=== PATIENT | male | born 1970 | race Caucasian/White ===

== ENCOUNTER 2019-11-28 20:32 | Emergency (ER) | payer OTHER, SELFPAY ==
[2019-11-28 20:33] VITALS: BP 143/90; PULSE 81; RESP 15; TEMP 36.7; O2SAT 96; BMI 30.1
[2019-11-28] MEDS: Tetracaine 0.5% Ophthalmic Bottle 1 DRP LEFT EYE (21:50)
--- NOTE | 2019-11-28 22:11 | ED.DCSUM_ITS ---
History of Present Illness Chief Complaint: Eye Problem Informant: Patient Location: Left Eye Onset: Today Associated Symptoms - Eyes: Foreign body sensation History of injury: Foreign body Visual correction: Corrective contact lenses Narrative: Patient is a 49-year-old male with no significant past medical history present with foreign body sensation in his left eye. Patient was put his contacts and and felt like his left contact was stuck in his eye. Son tried to get it out but was unsuccessful. Patient denies any vision changes. 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 He denies any other trauma or any other complaints at this time. Past Medical History - Allergies and Home Meds Allergies/Adverse Reactions: Allergies No Known Allergies Allergy (Verified 11/28/19 20:33) Primary Care Physician: Ron Isidro MD [Primary Care Provider] - De Talavera MD [STAFF PHYSICIAN] - Past Medical History: None Surgical History: noncontributory Lives: With Family Smoking Status: Current every day smoker - Family History Maternal Family History: Reports: No pertinent history Review of Systems General: Denies: Chills, Fever, Sweats Eyes: Reports: - - Foreign body sensation in left eye. Denies: Visual changes - bilaterally, Diplopia ENT: Denies: Rhinorrhea, Sore throat Cardiovascular: Denies: Chest pain, Palpitations Respiratory: Denies: Dyspnea, Cough, Dyspnea on exertion Gastrointestinal: Denies: Abdominal pain, Nausea, Vomiting, Diarrhea Skin: Denies: Rash, Wounds Neurological: Denies: Headache, Weakness, Numbness Physical Exam Visual Acuity: bilateral: 20/20 - 20/25 b/l Visual Acuity: Uncorrected Eyelid: Left eyelid everted, No foreign body Right Conjunctiva/Sclera: Normal inspection Left Conjunctiva/Sclera: No foreign body, Diffuse focal injection Left Cornea: Normal inspection Extraocular Motion: Normal exam, No pain, No palsy, No nystagmus Pupils: PERRL Vital Signs/Narrative: Vital Signs Temp Pulse Resp BP Pulse Ox 11/28/19 20:33 98.1 F 81 15 143/90 H 96 Inital Vital Signs reviewed: Yes General: Well nourished, Well developed Head: Normocephalic, Atraumatic ENT: Moist mucous membranes, No rhinorrhea Neck: Supple, Nontender Back: Nontender, Normal Inspection Extremities: Nontender, No edema Skin: Normal color, No rash Neurological: Alert, Oriented x3, Cranial nerves II-XII grossly intact, Normal Strength, Normal Sensation Psychological: Normal affect Diagnostic/Tx/Re-eval - Medical Decision Making Evaluated for concern of contact stuck in his left eye. We are unable to visua lize the contact in his eye. Eyelids are a everted. He is not have any obvious signs of trauma however he will be empirically placed on Cipro drops. His vision is normal. He is instructed to follow-up with his eye doctor tomorrow for repeat exam. Patient is counseled on signs and symptoms requiring return to the emergency room. Patient verbalizes agreement and understand this plan. Patient discharged home in stable and improved condition. ED Disposition - Plan for ED Patient: Disposition: Home or Assisted Living Diagnosis: Contact lens stuck Instructions: ED EYE FOREIGN BODY Corneal Referrals: Ron Isidro MD [Primary Care Provider] - De Talavera MD [STAFF PHYSICIAN] - Additional Instructions: We cannot find the contact lens in your eye tonight. You might of scratched her eyes he had been placed on antibiotic eyedrops just in case. Please follow-up with your eye doctor tomorrow for repeat eye exam. If you cannot get in with your eye doctor, call Dr. Talavera, who you have been referred to. Please let them know that you were seen in the ER today and told that you need 24-hour follow-up.
[2019-11-28] MEDS: Ciprofloxacin 0.3% 2.5ml Bottle LEFT EYE (22:47)
== END 2019-11-28 22:48 | disposition home or self-care (01) ==
PROVIDERS: Emergency Provider Emergency Medicine; PCP Family Medicine
DX: T15.02XA Foreign body in cornea, left eye, initial encounter (principal); X58.XXXA Exposure to other specified factors, initial encounter; Y93.89 Activity, other specified; Y92.9 Unspecified place or not applicable; F17.200 Nicotine dependence, unspecified, uncomplicated
CPT/HCPCS: 99283

== ENCOUNTER 2023-01-11 16:33 | Emergency (ER) | payer BC, SELFPAY ==
[2023-01-11 16:34] VITALS: BP 145/78; PULSE 66; RESP 18; TEMP 35.7; O2SAT 88; BMI 31.9
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
[2023-01-11] MEDS: Ondansetron 4 MG/2 ML Vial IV (16:56)
[2023-01-11 17:05] VITALS: O2SAT 98
[2023-01-11 17:11] LABS: Absolute Lymphocyte Count 2.11 X10^3/uL (0.83-4.51); Absolute Neutrophil Count 7.6 X10^3/uL (2.0-7.7); Basophil# 0.07 X10^3/uL; Basophil% 0.7 % (0-1); Eosinophil# 0.15 X10^3/uL; Eosinophils% 1.4 % (0-5); Hematocrit 45.1 % (40-54); Lymphocyte # 2.11 X10^3/ul (0.83-4.51); Lymphocyte % 19.6 % (19-41); Mean Corp Hgb Conc 33.3 g/dL (32-36); Mean Corpuscular Hgb 29.9 pg (27.0-32.0); Mean Corpuscular Volume 89.8 fL (80-94); Mean Platelet Vol. 9.6 fl (6.2-12.0); Monocyte# 0.72 X10^3/uL; Monocyte% 6.7 % (0-10); NRBC Flagged by Analyzer 0 % (0-5); Neutrophil # 7.56 X10^3/uL (2.7-7.7); Neutrophil % 70.4 % (47-70); Platelet Count 190 K/mm3 (150-450); RBC Distribution Width CV 12.2 % (11.6-14.6); RBC Distribution Width SD 39.9 fl (35.1-43.9); Red Blood Count 5.02 M/mm3 (4.6-6.2); White Blood Count 10.7 K/mm3 (4.4-11.0)
[2023-01-11 17:34] LABS: ALB/GLOB Ratio 0.9 RATIO (0.9-2.4); AST(SGOT) 28 U/L (15-37); Alanine Aminotransfer ALT/SGPT 36 U/L (16-61); Albumin, Serum 3.4 g/dL (3.2-5.0); Alkaline Phosphatase 102 U/L (45-117); Anion Gap 4 (5-15); BUN 14 mg/dL (7-18); BUN/Creat Ratio 10.5 RATIO (10-20); Calcium,Total 8.4 mg/dL (8.5-10.1); Chloride 107 mmol/L (98-107); Creatinine, Serum 1.33 mg/dL (0.70-1.30); EST Glomerular Filtration Rate 60 mL/min (>60); Est Glom Filt Rate - Afr Amer 72 mL/min (>60); Estimated Creatinine Clearance 65.56 ml/min; Globulin 3.8 g/dL (2.2-4.2); Glucose 101 mg/dL (74-106); Lipase 49 U/L (13-75); Protein, Total 7.2 g/dL (6.4-8.2); Sodium Level 139 mmol/L (136-145); Troponin-I HS 10 pg/mL (3.0-78.0)
[2023-01-11 17:41] LABS: Lactic Acid 1.4 mmol/L (0.4-1.9)
--- NOTE | 2023-01-11 17:45 | CT_ITS ---
EXAM: CT MAXILLOFACIAL WITHOUT INTRAVENOUS CONTRAST CLINICAL INDICATION: Trauma TECHNIQUE: Helically acquired images were obtained of the face without intravenous contrast. This CT exam was performed using one or more of the following dose reduction techniques: automated exposure control, adjustment of the mA and/or kV according to patient size, and/or use of iterative reconstruction technique. COMPARISON: No relevant prior studies available. FINDINGS: BONES/JOINTS: There are bilateral nasal bone fractures. No discrete lytic or blastic abnormalities. SOFT TISSUES: Unremarkable. No focal subcutaneous swelling. No discrete fluid collections. ORBITS: Unremarkable. Both globes are unremarkable. Extraocular muscles are normal. Retrobulbar fat appears unremarkable. SINUSES: See below. MASTOID AIR CELLS: Unremarkable as visualized. Clear. DENTAL: No acute findings. No periodontal osseous erosion. BRAIN AND EXTRA-AXIAL SPACES: There is callosal thickening in multiple ethmoid air cells. CT/Sinus/Facial Bone IMPRESSION: Bilateral nasal bone fractures. No other facial bone fractures are identified. Electronically Signed: Elijah Tee MD at 18:32 EDT ,
--- NOTE | 2023-01-11 17:45 | CT_ITS ---
EXAM: CT CERVICAL SPINE WITHOUT INTRAVENOUS CONTRAST CLINICAL INDICATION: Trauma TECHNIQUE: Helically acquired images were obtained of the cervical spine without intravenous contrast. 2D reformatted images were reviewed. This CT exam was performed using one or more of the following dose reduction techniques: automated exposure control, adjustment of the mA and/or kV according to patient size, and/or use of iterative reconstruction technique. COMPARISON: No relevant prior studies available. FINDINGS: VERTEBRAE: There is a well-corticated curvilinear lucency seen within the right superior articulating facet of C4 seen on series 5 image 67 likely representing a nutrient canal. In the setting of trauma a fracture is a possibility but less likely. No traumatic subluxation. Normal craniocervical junction and cervicothoracic junction. DISCS/SPINAL CANAL/NEURAL FORAMINA: There is disc space narrowing at C6-7. SOFT TISSUES: Unremarkable. No prevertebral soft tissue swelling. LYMPH NODES: Unremarkable. No cervical adenopathy. LUNG APICES: Unremarkable as visualized. Clear. CT/Spine Cervical without Contras IMPRESSION: Curvilinear well-corticated lucency seen within the right superior articulating facet of C4 likely representing a nutrient canal however in the setting of trauma a fracture is a possibility but is less likely. No other osseous abnormalities are identified. If indicated further evaluation with MRI may be beneficial. Electronically Signed: Elijah Tee MD at 18:36 EDT ,
--- NOTE | 2023-01-11 17:45 | CT_ITS ---
We are attempting to reach an attending provider to discuss findings. An addendum with communication details will be sent when the communication is complete. EXAM: CT LUMBAR SPINE WITHOUT INTRAVENOUS CONTRAST CLINICAL INDICATION: Trauma TECHNIQUE: Helically acquired images were obtained of the lumbar spine without intravenous contrast. 2D reformats were reviewed. This CT exam was performed using one or more of the following dose reduction techniques: automated exposure control, adjustment of the mA and/or kV according to patient size, and/or use of iterative reconstruction technique. COMPARISON: No relevant prior studies available. FINDINGS: VERTEBRAE: There is a fracture of the L1 vertebral body with a 9 mm retropulsed fragment. There is also a fracture through the right lamina of L1. No traumatic subluxation. No discrete lytic or blastic abnormality. DISCS/SPINAL CANAL/NEURAL FORAMINA: Unremarkable. Disc heights are preserved. No critical stenosis. VASCULATURE: Visualized abdominal aorta is not dilated. LYMPH NODES: Unremarkable. No retroperitoneal adenopathy. CT/Spine Lumbar without Contrast IMPRESSION: Comminuted fracture of the L1 vertebral body with a 9 mm retropulsed fragment. There is also a fracture of the right L1 lamina. Electronically Signed: Elijah Tee MD at 18:40 EDT ,
--- NOTE | 2023-01-11 17:45 | CT_ITS ---
EXAM: CT HEAD WITHOUT INTRAVENOUS CONTRAST CLINICAL INDICATION: Trauma TECHNIQUE: Multiple axial images were obtained of the head without intravenous contrast. This CT exam was performed using one or more of the following dose reduction techniques: automated exposure control, adjustment of the mA and/or kV according to patient size, and/or use of iterative reconstruction technique. COMPARISON: No relevant prior studies available. FINDINGS: BRAIN AND EXTRA-AXIAL SPACES: Unremarkable. No intra- or extra-axial hemorrhage. No evidence of acute infarct. No intracranial mass or mass effect. There is preservation of the becerra/white matter interface. Posterior fossa structures are unremarkable. Ventricles are appropriate for age. No hydrocephalus. Basal cisterns are patent. BONES/JOINTS: There are bilateral nasal bone fractures. No discrete lytic or blastic abnormalities. SINUSES: Unremarkable as visualized. Clear. MASTOID AIR CELLS: Unremarkable. Clear. ORBITS: Visualized globes, extraocular muscles, optic nerves and retrobulbar fat appear unremarkable. CT/Brain/Head without Contrast IMPRESSION: 1. No acute intracranial abnormality. 2. Bilateral nasal bone fractures. Electronically Signed: Elijah Tee MD at 18:33 EDT ,
--- NOTE | 2023-01-11 17:45 | CT_ITS ---
EXAM: CT CHEST, ABDOMEN AND PELVIS WITH INTRAVENOUS CONTRAST CLINICAL INDICATION: Trauma TECHNIQUE: Helically acquired images were obtained of the chest, abdomen and pelvis with intravenous contrast. This CT exam was performed using one or more of the following dose reduction techniques: automated exposure control, adjustment of the mA and/or kV according to patient size, and/or use of iterative reconstruction technique. CONTRAST: IV 100mL [id number] COMPARISON: No relevant prior studies available. FINDINGS: CHEST: LUNGS AND PLEURAL SPACES: There is minimal emphysematous changes in the upper lobes medially. There is minimal scarring or atelectasis in the lung bases. There is no effusion or pneumothorax. No mass. HEART: Unremarkable. Heart size is normal. No pericardial effusion. MEDIASTINUM: Unremarkable. No mediastinal or hilar adenopathy. Esophagus is unremarkable. No hiatal hernia. THYROID: Unremarkable. No thyroid lesions. ABDOMEN: LIVER: Unremarkable. Homogeneous. No focal mass. GALLBLADDER AND BILE DUCTS: Unremarkable. No calcified gallstones. No gallbladder distention or wall edema. No intra- or extrahepatic biliary ductal dilation. PANCREAS: Unremarkable. No focal cystic or solid mass. SPLEEN: Unremarkable. Normal size without focal cystic or solid mass. ADRENALS: Unremarkable. No nodules. KIDNEYS AND URETERS: There are low-density lesions on the left kidney compatible with cysts. No follow-up imaging is necessary. The patient has a pelvic right kidney. No hydronephrosis. STOMACH AND BOWEL: Unremarkable. No stomach or bowel distention. No focal inflammatory change. PELVIS: APPENDIX: No evidence of acute appendicitis. BLADDER: Unremarkable. REPRODUCTIVE: Unremarkable as visualized. No mass. CHEST, ABDOMEN and PELVIS: INTRAPERITONEAL SPACE: Unremarkable. No ascites or other fluid collection. No free air. BONES/JOINTS: There is a compression deformity of L1. There is a 9 mm retropulsed fragment present. Posterior elements are intact. No suspicious lytic or blastic abnormality. SOFT TISSUES: Unremarkable. No discrete abdominal or pelvic wall hernia. VASCULATURE: Unremarkable. Aorta is non-dilated. No aortic dissection. No obvious central pulmonary embolism although this study was not performed with the pulmonary embolism protocol. LYMPH NODES: Unremarkable. No enlarged lymph nodes. CT/CT Chest, Abd, Pel w/Contrast IMPRESSION: 1. Compression deformity of L1 with a 9 mm retropulsed fragment. This does narrow the central canal to 9 mm. The posterior elements are intact. If indicated further evaluation with MRI or spine may be beneficial. 2. No other acute abnormalities of the chest, abdomen or pelvis. Electronically Signed: Elijah Tee MD at 18:30 EDT ,
[2023-01-11 18:24] VITALS: BP 140/75; PULSE 70; RESP 16; O2SAT 98
[2023-01-11] MEDS: Morphine 4 MG/ML Syringe IV (20:22)
[2023-01-11 20:23] LABS: Bacteria 0 SEEN /hpf (None Seen); Mucous, Urine 0 SEEN /hpf (<or=2+); White Blood Cells 0 SEEN /hpf (0-5)
[2023-01-11 20:29] LABS: Color, Urine Yellow (Yellow); Glucose, Dipstick Normal (Normal); Ketone-Dipstick Negative (Negative); Leukocyte Esterase-Dipstick Negative /ul (Negative); Nitrite-Dipstick Negative (Negative); Occult Blood-Urine 10 /ul (Negative); Protein-Dipstick 30 mg/dl (Negative); Urine Bilirubin Dipstick Negative (Negative); Urine Clarity Sl. Cloudy (Clear); Urine Urobilinogen Normal (Normal); Urine pH 6.5 (5.0 - 8.0)
[2023-01-11 20:36] LABS: Amorphous Sediment 1+ URATE; Red Blood Cells-Urine 0-5 SEEN /hpf (0-5); Squamous Epithelial Cells - UA 0-5 SEEN /hpf (0-5)
[2023-01-11 20:38] VITALS: BP 129/71; PULSE 71; RESP 18; O2SAT 91
== END 2023-01-11 20:39 | disposition short-term general hospital (02) ==
PROVIDERS: Emergency Provider Emergency Medicine; PCP Family Medicine; Visit Provider Emergency Medicine
DX: S32.018A Other fracture of first lumbar vertebra, initial encounter for closed fracture (principal); E11.9 Type 2 diabetes mellitus without complications; S02.2XXA Fracture of nasal bones, initial encounter for closed fracture; V58.1XXA Passenger in pick-up truck or van injured in noncollision transport accident in nontraffic accident, initial encounter; Y93.89 Activity, other specified; Y92.410 Unspecified street and highway as the place of occurrence of the external cause; I10 Essential (primary) hypertension; E78.00 Pure hypercholesterolemia, unspecified; F17.210 Nicotine dependence, cigarettes, uncomplicated; Z79.84 Long term (current) use of oral hypoglycemic drugs; Z79.899 Other long term (current) drug therapy
CPT/HCPCS: 36415; 70450; 70486; 71260; 72125; 72131; 74177; 80053; 81001; 83605; 83690; 84484; 85025; 93005; 96374; 96375; 99285; Q9967; A4216; J2405